=== PATIENT | female | born 1960 | race Caucasian/White ===

== ENCOUNTER → 2016-07-19 | Outpatient (CLI) | payer BC ==
[~2016-07-19] MED LIST: ATOR10TA66 PO; LEVO25TA5 PO; LISI2.5T PO; METF500T8 PO; METO-270 PO; OMEP20CA12 PO
--- NOTE | 2016-07-19 17:06 | Diagnostic Imaging Report ---
INDICATION: Right shoulder pain. TECHNIQUE: AP, oblique, and transscapular views of the right shoulder are obtained. FINDINGS: There is mild degenerative change of the AC joint. There is no acute fracture or dislocation. Glenohumeral joint appears preserved. IMPRESSION: Mild degenerative change of the AC joint with no acute fracture or dislocation. Dictated by: Dictated on workstation # [id number]
== END ==
LOC: RAD 16:44
PROVIDERS: ATTEND Nurse Practitioner Family
DX: M25.511 Pain in right shoulder (principal)
CPT/HCPCS: 73030

== ENCOUNTER 2016-08-10 10:00 | Outpatient (CLI) | payer BC ==
[~2016-08-10] VITALS: Ht 154.9 cm; Wt 89.8 kg
[2016-08-10] MEDS ORDERED: LISI2.5T PO (10:52)
[2016-08-10] MEDS ORDERED: OMEP20CA12 PO (10:52)
[2016-08-10] MEDS ORDERED: METF500T8 PO (10:52)
[2016-08-10] MEDS ORDERED: LEVO25TA5 PO (10:52)
[2016-08-10] MEDS ORDERED: METO-270 PO (10:52)
[2016-08-10] MEDS ORDERED: ATOR10TA66 PO (10:52)
== END 2016-08-10 10:53 ==
LOC: PREOP 10:00
PROVIDERS: ATTEND Surgery
DX: Z01.818 Encounter for other preprocedural examination (principal); Z12.11 Encounter for screening for malignant neoplasm of colon; K21.9 Gastro-esophageal reflux disease without esophagitis

== ENCOUNTER 2016-08-13 08:21 | Day surgery (SDC) | payer BC ==
[~2016-08-13] VITALS: Ht 154.9 cm; Wt 89.8 kg
[2016-08-13] MEDS ORDERED: FLUMAZENIL (ROMAZICON) 0.1 MG/ML 5 ML VIAL INJ PRN (08:30)
[2016-08-13] MEDS ORDERED: NALOXONE 0.4 MG/ML 1 ML (NARCAN) VIAL IVP PRN (08:30)
[2016-08-13] MEDS ORDERED: NS IV 500 ML 500 ML IV ONE (08:30)
--- NOTE | 2016-08-13 08:55 | Pre-Op Note & Conscious Sedat ---
Pre-Operative Progress Note H&P Reviewed The H&P was reviewed, patient examined and no changes noted. Date H&P Reviewed: Aug 13, 2016 Time H&P Reviewed: 08:54 Pre-Op Diagnosis: GERD. Screening Conscious Sedation Pre-Proced ASA Class: 2 Airway Mallampati Classification: ([place] appropriate class) I. II. III, IV Lungs Heart ASA score ASA 1: a normal healthy patient ASA 2: a patient with a mild systemic disease (mid diabetes, controlled hypertension, obesity ASA 3: a patient with a severe systemic disease that limits activity (angina , COPD, prior Myocardial infarction) ASA 4: a patient with an incapacitating disease that is a constant threat to life (CHF, renal failure) ASA 5: a moribund patient not expected to survive 24 hrs. (ruptured aneurysm) ASA 6: a declared brain patient whose organs are being harvested. For emergent operations, add the letter E after the classification Grade 2 Sedation Plan: Discussed options with patient/fam Note The patient is an appropriate candidate to undergo the planned procedure, sedation, and anesthesia. The patient immediately re-assessed prior to indication. DEIDRRE HOANG MD Aug 13, 2016 8:55 am
[2016-08-13 09:10] VITALS: BP 112/80
[2016-08-13] MEDS ORDERED: fentaNYL INJECTION 100 MCG/2 ML AMP ONE ×2 (09:17)
[2016-08-13] MEDS ORDERED: MIDAZOLAM 2 MG/2 ML (VERSED) VIAL ONE ×5 (09:17)
[2016-08-13] MEDS ORDERED: HURRICAINE EXT TUBE (BENZOCAINE) ONE (09:18)
[2016-08-13] MEDS: fentaNYL INJECTION 100 MCG/2 ML AMP IVP PRN ×4 (09:28→09:48)
[2016-08-13] MEDS: MIDAZOLAM 2 MG/2 ML (VERSED) VIAL IVP PRN ×4 (09:29→09:46)
--- NOTE | 2016-08-13 10:08 | Progress Note-Post Operative ---
Post-Operative Progess Note Pre-Operative Diagnosis GERD. Screening Post-Operative Diagnosis EGD: fundoplication with a persistent hiatal hernia. Multiple gastric polyps. Distal gastritis Sigmoid diverticulosis on colonoscopy Post-Op Procedure Note Date of Procedure: Aug 13, 2016 Name of Procedure: 1.EGD with gastric polypectomy 2. Colonoscopy to cecum Anesthesia Type sedation Specimen(s) collected gastric polyps DEIRDRE HOANG MD Aug 13, 2016 10:08 am
--- NOTE | 2016-08-13 10:09 | Discharge Inst-Simple/Standard ---
Discharge Inst-Standard Discharge Medications New, Converted or Re-Newed RX: Other Patient Instructions/Follow Up Plan of Care/Instructions/FU: repeat colonoscopy in 10 years Activity as Tolerated: Yes Discharge Diet: No Restrictions DEIRDRE HAONG MD Aug 13, 2016 10:09 am
[2016-08-13] MEDS ORDERED: HURRICAINE EXT TUBE (BENZOCAINE) XX ONE (10:15)
[2016-08-13 10:20] VITALS: BP 113/80
[2016-08-13 10:50] VITALS: BP 121/78
[2016-08-13 11:15] VITALS: BP 121/78
--- NOTE | 2016-08-13 12:42 | PROCEDURE REPORT ---
PROCEDURE PHYSICIAN: DEIRDRE HOANG DATE OF PROCEDURE: PROCEDURES: 1. Upper GI endoscopy. 2. Gastric polypectomy (hot biopsy) 3. Screening colonoscopy. SURGEON: Dr. Hoang. INDICATION FOR THE PROCEDURE: This lady came in for an upper endoscopy to evaluate symptoms of longstanding gastroesophageal reflux and for concomitant screening colonoscopy. She denied any family history of colon cancer. Informed consent was obtained after reviewing the procedures in detail. DESCRIPTION OF PROCEDURE: 1. UPPER GI ENDOSCOPY/GASTRIC POLYPECTOMY: She was placed in left lateral decubitus position and her vital signs were monitored. Conscious sedation was achieved using Versed and fentanyl. The flexible gastroscope was introduced down the esophagus, past the stomach, into the proximal duodenum. FINDINGS: ESOPHAGUS: Configuration of previous fundoplication with a persistent hiatal hernia. There was no esophagitis. STOMACH: 1. Multiple polyps ranging in size from 1 to 2 mm were found along the body. A few of them were excised with hot biopsy forceps. 2. Distal gastritis. DUODENUM: Normal. She tolerated the procedure well and was turned around in preparation for colonoscopy. IMPRESSION: 1. Symptoms of reflux disease. 2. Previous fundoplication. 3. Gastric polyps possibly due to hyperacidity. 2. COLONOSCOPY: Examination of the perianal area revealed external hemorrhoids and skin tags. Digital examination was otherwise unremarkable. The colonoscope was then introduced into the rectum and advanced to the cecum. The scope was then withdrawn slowly and the mucosa examined in a systematic fashion. The quality of bowel preparation was rather suboptimal. FINDINGS: 1. Sigmoid diverticulosis. 2. No polyps were found. She tolerated the procedures well and was taken back to the nursing area in a stable condition. IMPRESSION: 1. Screening colonoscopy. 2. No polyps. 3. No family history. 4. Recommend repeating in 10 years. Job ID: [id number] Dictated Date: 08/13/2016 10:07:01 Egg Grader Date: 08/13/2016 12:37:37 / yolanda ASHRAF
== END 2016-08-13 11:15 | disposition home or self-care (01) ==
LOC: ENDO 08:21
PROVIDERS: ATTEND Surgery
DX: Z12.11 Encounter for screening for malignant neoplasm of colon (principal); K31.7 Polyp of stomach and duodenum; K29.70 Gastritis, unspecified, without bleeding; K44.9 Diaphragmatic hernia without obstruction or gangrene
CPT/HCPCS: 88305

== ENCOUNTER → 2016-09-20 | Outpatient (CLI) | payer BC ==
--- NOTE | 2016-09-21 08:01 | Diagnostic Imaging Report ---
Bilateral screening mammogram. The current study was also evaluated with a Computer Aided Detection (CAD) system. INDICATION: Screening. No current complaints stated on the questionnaire. COMPARISON: 09/08/2015. FINDINGS: The breasts are composed of heterogeneously dense parenchyma which may decrease mammographic sensitivity. There are scattered benign-appearing calcifications. Allowing for technique and positional differences, no suspicious change is seen. IMPRESSION: No significant change. ACR BI-RADS Category 2: Benign findings. Result letter will be mailed to the patient. Note: At least 10% of breast cancer is not imaged by mammography. Dictated by: Dictated on workstation # [id number]
== END ==
LOC: RAD 07:09
PROVIDERS: ATTEND Nurse Practitioner Family
DX: Z12.31 Encounter for screening mammogram for malignant neoplasm of breast (principal)
CPT/HCPCS: 77067

== ENCOUNTER → 2016-12-10 | Outpatient (CLI) | payer BC ==
--- NOTE | 2016-12-10 09:34 | Diagnostic Imaging Report ---
PROCEDURE: US Thyroid. TECHNIQUE: Multiple real-time grayscale images were obtained of the thyroid in various projections. INDICATION: Followup thyroid nodule COMPARISON: None available. FINDINGS: Right thyroid lobe: The right thyroid lobe measures 4.2 x 1.5 x 2.1 cm It demonstrates a background of homogeneous echogenicity. There are 2 dominant well-circumscribed nodules within the superior pole of the right thyroid lobe which are stable to decreased in size. The more superior nodule remains anechoic and cystic and now measures 1.4 x 1.2 x 0.8 cm (previously 1.4 x 1.2 x 1.2 cm). The other dominant nodule is solid and heterogeneously isoechoic with smooth margins and wider than tall configuration. This measures 1.2 x 0.8 x 1.1 cm, which is unchanged from prior examination. Isthmus: The thyroid isthmus is normal in echogenicity and thickness measuring 0.2 cm. Left thyroid lobe: The left thyroid lobe measures 4.4 x 1.6 x 2.1 cm. It demonstrates a background of homogeneous echogenicity. The dominant well-circumscribed hypoechoic nodule with smooth margins in the upper pole is unchanged measuring 0.8 x 0.6 x 1.2 cm. Mixed solid and cystic nodule in the lower pole of the left thyroid lobe is unchanged measuring 1.4 x 1.4 x 1.1 cm. IMPRESSION: 1. Well-circumscribed cyst in the upper pole of the right thyroid lobe has decreased in size. The remainder of the mixed solid and cystic thyroid nodules are unchanged. No enlarging or new thyroid nodules to suggest neoplasm. Dictated by: Dictated on workstation # [id number]
== END ==
LOC: RAD 08:34
PROVIDERS: ATTEND Nurse Practitioner Family
DX: E04.2 Nontoxic multinodular goiter (principal)
CPT/HCPCS: 76536

== ENCOUNTER → 2017-10-03 | Outpatient (CLI) | payer BC ==
[~2017-10-03] MED LIST changes: -METO-270 PO; +METO-387 PO
--- NOTE | 2017-10-03 13:44 | Diagnostic Imaging Report ---
INDICATION: Routine screening. Comparison is made with prior exam from 09/20/2016 and 09/08/2015. The current study was also evaluated with a Computer Aided Detection (CAD) system. Scattered fibronodular densities are identified bilaterally. There are benign calcifications throughout both breasts. No dominant mass or malignant appearing microcalcifications are seen. The axilla are unremarkable. IMPRESSION: BI-RADS category 2 No mammographic features suspicious for malignancy are identified. ACR BI-RADS Category 2: Benign findings. Result letter will be mailed to the patient. Note: At least 10% of breast cancer is not imaged by mammography. Dictated by: Dictated on workstation # [id number]
== END ==
LOC: RAD 07:44
PROVIDERS: ATTEND Nurse Practitioner Family
DX: Z12.31 Encounter for screening mammogram for malignant neoplasm of breast (principal)
CPT/HCPCS: 77067

== ENCOUNTER → 2018-03-12 | Outpatient (CLI) | payer BC ==
--- NOTE | 2018-03-12 17:53 | Diagnostic Imaging Report ---
PROCEDURE: US Thyroid. TECHNIQUE: Multiple real-time grayscale images were obtained of the thyroid in various projections. INDICATION: Thyroid nodules. FINDINGS: The right thyroid lobe is 4.9 x 1.5 x 2.4 cm. This is not significantly changed from 12/10/2016. There are multiple right lobe masses, the largest of which is 1.3 cm also unchanged. The left thyroid lobe is 4.3 x 2.0 x 2.0 cm, unchanged. Multiple left lobe masses are present, the largest of which is 1.7 cm, not significantly changed. No new mass is identified. Bilateral nodules show mixed degrees of cystic degeneration. IMPRESSION: Findings most suggestive of multinodular adenomatous goiter not significantly changed from prior. Dictated by: Dictated on workstation # [id number]
== END ==
LOC: RAD 16:08
PROVIDERS: ATTEND Family Medicine
DX: E04.2 Nontoxic multinodular goiter (principal)
CPT/HCPCS: 76536

== ENCOUNTER → 2019-03-24 | Outpatient (CLI) | payer BC ==
[~2019-03-24] MED LIST changes: -OMEP20CA12 PO; +OMEP20CA13 PO
--- NOTE | 2019-03-24 14:33 | Diagnostic Imaging Report ---
EXAMINATION: Digital mammogram bilateral screening. The current study was also evaluated with a Computer Aided Detection (CAD) system. 3-D tomosynthesis was also performed and reviewed. INDICATION: Screening. This study was compared to the prior exams of 10/03/2017, 09/20/2016, and 09/08/2015. At this time, there are no current complaints. FINDINGS: The fibroglandular tissue in both breasts is heterogeneously dense. This does limit the sensitivity of this exam. Overall, there does not appear to have been any significant change when compared to the prior study. No primary or secondary sign of malignancy is noted. 3D tomographic images fail to show any sign of malignancy. IMPRESSION: There is no radiographic evidence for malignancy. ACR BI-RADS Category 1: Negative. Result letter will be mailed to the patient. Note: At least 10% of breast cancer is not imaged by mammography. Dictated by: Dictated on workstation # [id number]
== END ==
LOC: RAD 07:12
PROVIDERS: ATTEND Nurse Practitioner Family
DX: Z12.31 Encounter for screening mammogram for malignant neoplasm of breast (principal)
CPT/HCPCS: 77067

== ENCOUNTER → 2019-03-25 | Outpatient (CLI) | payer BC ==
--- NOTE | 2019-03-25 11:14 | Diagnostic Imaging Report ---
PROCEDURE: US Thyroid. TECHNIQUE: Multiple real-time grayscale images were obtained of the thyroid in various projections. INDICATION: Thyroid nodules The previous thyroid ultrasound exam performed on 03/12/2018 noted multiple nodules involving both lobes of the thyroid. The appearance of the thyroid gland was felt to be related to a multinodular goiter and when compared to the previous exam of 12/10/2016 there did not appear to have been any significant change. On this exam there are again multiple hypoechoic nodules scattered throughout both lobes of the thyroid. The largest nodule is in the inferior pole of the left lobe measures 1.6 x 1.3 x 1.4 cm. This nodule is similar in size and appearance to the prior study. The other nodules do not appear to have changed significantly and no new nodule has developed. The thyroid gland itself is not enlarged with the right lobe measuring 4.8 x 1.5 x 2.4 cm, and the left lobe is estimated to be 4.6 x 2.3 x 1.9 cm (normal gland size 4-5 x 2 x 2 cm or less). IMPRESSION: There are multiple nodules involving both lobes of the thyroid. The largest of these nodules in the inferior pole of the left lobe seems similar to the prior exam. Most likely this appearance is secondary to a multinodular goiter. Dictated by: Dictated on workstation # [id number]
== END ==
LOC: RAD 06:51
PROVIDERS: ATTEND Nurse Practitioner Family
DX: E04.2 Nontoxic multinodular goiter (principal)
CPT/HCPCS: 76536

== ENCOUNTER → 2020-04-05 | Outpatient (CLI) | payer BC ==
[~2020-04-05] MED LIST changes: +METF-865 PO; -METF500T8 PO; -METO-387 PO; +MTP25TSR PO; -OMEP20CA13 PO; +OMEP20CA18 PO
--- NOTE | 2020-04-05 16:06 | Diagnostic Imaging Report ---
PROCEDURE: US Thyroid. TECHNIQUE: Multiple real-time grayscale images were obtained of the thyroid in various projections. INDICATION: Thyroid nodules, follow-up. Correlation is made with prior exam from 03/25/2019. Right lobe of the thyroid measures 4.3 x 1.5 x 2.6 cm and the left lobe measures 4.5 x 2.0 x 2.1 cm. Isthmus is 3 mm in thickness. Numerous thyroid nodules are again noted bilaterally. Mixed solid and cystic nodule in mid right lobe previously measured 10 mm x 6 mm x 9 mm compared with 8 mm x 8 mm x 7 mm on prior. Mixed solid and cystic nodule in the lower pole of the left lobe measures 17 mm x 12 mm x 15 mm compared with 16 mm x 13 mm x 14 mm on prior. IMPRESSION: Bilateral thyroid nodules. Overall size is very similar to examination from one year earlier. Dictated by: Dictated on workstation # [id number]
--- NOTE | 2020-04-05 18:01 | Diagnostic Imaging Report ---
INDICATION: Routine screening. COMPARISON is made with prior mammograms from 03/24/2019 and 10/03/2017. 2-D and 3-D bilateral screening mammography was performed with CAD. Scattered fibroglandular densities are identified bilaterally. Nodular density medial right breast is stable. Scattered benign-appearing calcifications in both breasts are again noted. No spiculated mass or malignant appearing microcalcifications are seen. Axillae are unremarkable. IMPRESSION: BI-RADS Category 2. No mammographic features suspicious for malignancy are identified. ACR BI-RADS Category 2: Benign findings. Result letter will be mailed to the patient. Note: At least 10% of breast cancer is not imaged by mammography. Dictated by: Dictated on workstation # [id number]
== END ==
LOC: RAD 15:00
PROVIDERS: ATTEND Nurse Practitioner Family
DX: Z12.31 Encounter for screening mammogram for malignant neoplasm of breast (principal); E04.2 Nontoxic multinodular goiter
CPT/HCPCS: 76536; 77063; 77067

== ENCOUNTER → 2021-04-20 | Outpatient (CLI) | payer BC ==
[~2021-04-20] MED LIST changes: -LISI2.5T PO; +LISI2.5T13 PO
--- NOTE | 2021-04-20 16:00 | Diagnostic Imaging Report ---
PROCEDURE: US Thyroid. TECHNIQUE: Multiple real-time grayscale images were obtained of the thyroid in various projections. INDICATION: Thyroid nodules. FINDINGS: The previous thyroid ultrasound exam performed on 04/05/2020 noted bilateral thyroid nodules. On this exam, those nodules are again identified and do not seem to have changed significantly. The largest nodule on the left measures 1.8 x 1.6 x 1.3 cm while the largest nodule on the right measures 1.1 x 0.9 x 0.7 cm. No new nodule has developed. The thyroid gland is normal in size measuring 4.0 x 1.9 x 2.4 cm as opposed to 4.7 x 1.6 x 1.9 cm (normal gland size 4-5 x 2 x 2 cm or less). IMPRESSION: 1. The multiple nodules within each lobe of the thyroid seen previously do not appear to have changed significantly. Most likely, they are benign. 2. If further evaluation is desired, then a follow-up thyroid ultrasound exam in one year would be recommended. Dictated by: Dictated on workstation # [id number]
--- NOTE | 2021-04-20 17:01 | Diagnostic Imaging Report ---
Digital mammogram. Indication: Bilateral screening This study was compared to the prior exams of 04/05/2020, 03/24/2019 and 10/03/2017. At this time there are no current complaints. The current study was also evaluated with a Computer Aided Detection (CAD) system. FINDINGS: The fibroglandular tissue in both breasts is heterogeneously dense. This does limit the sensitivity of this exam. Overall, there does not appear to have been any significant change when compared to the prior study. No primary or secondary sign of malignancy is noted. IMPRESSION: There is no radiographic evidence for malignancy. ACR BI-RADS Category 1: Negative. Result letter will be mailed to the patient. Note: At least 10% of breast cancer is not imaged by mammography. Dictated by: Dictated on workstation # [id number]
== END ==
LOC: RAD 14:45
PROVIDERS: ATTEND Nurse Practitioner Family
DX: Z12.31 Encounter for screening mammogram for malignant neoplasm of breast (principal); E04.2 Nontoxic multinodular goiter
CPT/HCPCS: 76536; 77063; 77067

== ENCOUNTER → 2022-04-24 | Outpatient (CLI) | payer BC ==
--- NOTE | 2022-04-24 14:37 | Diagnostic Imaging Report ---
PROCEDURE: US Thyroid. TECHNIQUE: Multiple real-time grayscale images were obtained of the thyroid in various projections. INDICATION: Multinodular thyroid, one-year follow-up. COMPARISON: 04/20/2021. FINDINGS: The right lobe measures 4.7 x 1.4 x 2.1 cm. There is a predominantly cystic nodule with a small mural area of soft tissue density measuring 1.2 x 0.7 x 1 cm. The left lobe measures 4.9 x 2.2 x 2.2 cm. There is a hypoechoic homogeneous well-circumscribed nodule in the upper lobe measuring 1.6 x 0.8 x 1.2 cm. This does show macrocalcification. There is a second dominant nodule inferiorly which is very heterogeneous and hypoechoic with slight lobulation and macrocalcification measuring 1.9 x 1.6 x 2.0 cm. IMPRESSION: Multinodular appearance of the thyroid. 1. The two nodules on the left both have increased significantly in size and are moderately suspicious. Ultrasound-guided needle biopsy recommended. TI-RADS 4. 2. The predominantly cystic nodule within the right lobe with a small mural nodule likely represents colloid cyst and has changed very little. Dictated by: Dictated on workstation # [id number]
--- NOTE | 2022-04-24 16:07 | Diagnostic Imaging Report ---
INDICATION: Routine screening. COMPARISON: 04/20/2021 and 04/05/2020. TECHNIQUE: 2D and 3D bilateral screening mammography was performed with CAD. FINDINGS: Scattered fibroglandular densities are identified bilaterally. The parenchymal pattern is stable. There are scattered benign calcifications. No mass or malignant-appearing microcalcifications are seen. The axillae are unremarkable. IMPRESSION: No mammographic features suspicious for malignancy are identified. ACR BI-RADS Category 2: Benign findings. Result letter will be mailed to the patient. Note: At least 10% of breast cancer is not imaged by mammography. Dictated by: Dictated on workstation # [id number]
== END ==
LOC: RAD 09:00
PROVIDERS: ATTEND Family Medicine
DX: Z12.31 Encounter for screening mammogram for malignant neoplasm of breast (principal); E04.2 Nontoxic multinodular goiter
CPT/HCPCS: 76536; 77063; 77067

== ENCOUNTER → 2022-05-09 | Outpatient (CLI) | payer BC ==
[~2022-05-09] VITALS: Ht 79.1 cm; Wt 154.9 kg
[~2022-05-09] MED LIST changes: +LIDOCAINE 1% INJ 30 ML (XYLOCAINE) VIAL INJ ONE
--- NOTE | 2022-05-09 14:09 | Diagnostic Imaging Report ---
INDICATION: Left lobe thyroid nodule. Patient presents for ultrasound fine needle aspiration and Rotex biopsy. Patient was brought to the procedure room and placed on the table in the supine position. Ultrasound imaging of the neck was performed to evaluate appropriate entry site. Left neck was then prepped and draped in usual sterile fashion. Small amount of 1% lidocaine was utilized for local anesthesia. A total of 4 passes were made into the circumscribed hypoechoic solid nodule in the upper pole left lobe of thyroid utilizing 25-gauge needles and fine-needle aspiration technique. A single pass was made with a Rotex needle and Rotex biopsy was performed. Hemostasis was obtained. Patient tolerated procedure well left Department in stable condition. IMPRESSION: Successful ultrasound-guided fine-needle aspiration and Rotex biopsy of the solid nodule upper pole left lobe of thyroid. Pathology results are currently pending. Dictated by: Dictated on workstation # [id number]
--- NOTE | 2022-05-09 14:10 | Diagnostic Imaging Report ---
INDICATION: Left thyroid nodule. Patient presents for ultrasound-guided, fine-needle aspiration and Rotex biopsy. Patient was brought to the procedure and placed on table in the supine position. Ultrasound imaging of the neck was performed to evaluate appropriate entry site. The neck was then prepped and draped in the usual sterile fashion. Small amount of 1% lidocaine was utilized for local anesthesia. 4 passes were made into the mixed solid and cystic mass in the lower pole of the left lobe of the thyroid utilizing 25-gauge needles and fine-needle aspiration technique. A single pass was made with a Rotex needle and Rotex biopsy was performed. Hemostasis was obtained. Patient tolerated the procedure well and left the department in stable condition. IMPRESSION: Successful ultrasound guided fine needle aspiration Rotex biopsy of the mixed solid and cystic nodule in the lower pole left lobe of thyroid. Pathology results are currently pending. Dictated by: Dictated on workstation # [id number]
== END ==
LOC: RAD 11:15
PROVIDERS: ATTEND Nurse Practitioner Family
DX: E04.2 Nontoxic multinodular goiter (principal)
CPT/HCPCS: 10005; 88173

== ENCOUNTER → 2023-03-21 | Outpatient (CLI) | payer BC ==
[~2023-03-21] MED LIST changes: -LIDOCAINE 1% INJ 30 ML (XYLOCAINE) VIAL INJ ONE
== END ==
LOC: CARD 12:00
PROVIDERS: ATTEND Family Medicine
DX: Z53.9 Procedure and treatment not carried out, unspecified reason (principal)

== ENCOUNTER → 2023-03-21 | Outpatient (CLI) | payer BC ==
--- NOTE | 2023-03-23 09:58 | Diagnostic Imaging Report ---
Thyroid Scintigraphy and Uptake Radiopharmaceutical: 202 uCi I-123 sodium iodide P.O. History: Abnormal thyroid function. Findings: Pinhole collimation images of the thyroid gland were obtained in multiple projections 24 hours after ingestion of the radiopharmaceutical. The scintigraphic images demonstrate uniform tracer uptake within a gland of normal size and configuration. There appears to be a hyperfunctional nodule in the inferior left lobe. The 24-hour radioactive iodine uptake is 48% (normal range 10-30%). Impression: Elevated iodine uptake in the thyroid with a hyperfunctioning nodule in the inferior left lobe. Dictated by: Dictated on workstation # [id number]
== END ==
LOC: CARD 10:27
PROVIDERS: ATTEND Family Medicine
DX: R94.6 Abnormal results of thyroid function studies (principal)
CPT/HCPCS: 78014; A9516